=== PATIENT | female | born 1970 | race Caucasian/White ===

== ENCOUNTER → 2023-08-23 09:19 | Outpatient (REF) | payer BC, SELFPAY | LOC: HWWDC 09:19 | PROVIDERS: ATTENDING PHYSICIAN Internal Medicine | DX: Z12.31 Encounter for screening mammogram for malignant neoplasm of breast (principal) | CPT/HCPCS: 77063; 77067 ==

== ENCOUNTER 2024-10-13 08:33 | Emergency (ER) | payer BC, SELFPAY ==
[2024-10-13 08:36] VITALS: BP 167/109
[2024-10-13 09:58] VITALS: BMI 39.5
[2024-10-13 10:04] VITALS: BP 158/87
--- NOTE | 2024-10-13 10:22 | ED.GENMED ---
History of Present Illness
General
Chief Complaint: Rectal Bleeding
Source: patient
Exam Limitations: none
Time Seen by Provider: 10/13/24 09:58
Nursing documentation reviewed up to this point in time: agreed with
History of Present Illness
History of Present Illness:
Patient is a 53-year-old female with past medical history of Graves' disease, renal cell carcinoma 7 years ago status post partial nephrectomy currently in remission, who presents to the emergency department for evaluation of rectal bleeding.
Patient reports that she has been constipated recently, she attributes this to dehydration. She reports that she went out to eat last night and ate spicier food than she does normally. She reports that when she got home she had a large amount of
brown diarrhea. Patient reports that she then had another episode of diarrhea prior to bed. She reports that at the end of the bowel movement, she did have a small amount of bright red blood. Patient reports that she had 2 or 3 similar episodes.
She reports that her last normal was around 530 this morning and was less blood than it had been previously. Patient denies any blood clots. Patient denies any bleeding into her underwear or pants. Patient reports she did have some lower
abdominal cramping which is now resolving. Patient denies any nausea or vomiting. Patient denies any lightheadedness or dizziness. Patient denies recent fevers, chills, chest pain, shortness of breath. Patient denies she is anticoagulated.
Patient denies history of similar. Patient denies she has ever had a colonoscopy.
Past History
Past History
ED Past Medical History: Cancer (renal cancer) and Hyperthyroidism (Graves disease)
ED Past Surgical History: Cholecystectomy and Other (Partial nephrectomy)
Social History
Tobacco: Non-smoker
Alcohol: Occasional
Drug: None
Review of Systems
Review of Systems
Allergies reviewed?: Yes
All Other Systems: ROS reviewed and negative except as documented in HPI and ROS
Constitutional: Reports no symptoms
EENT: Reports no symptoms
Respiratory: Reports no symptoms
Cardiac: Reports no symptoms
ABD/GI: Reports abdominal pain, diarrhea and bloody stools; Denies nausea
: Reports no symptoms
Musculoskeletal: Reports no symptoms
Skin: Reports no symptoms
Neurological: Reports no symptoms
Endocrine: Reports no symptoms
Hematologic/Lymphatic: Reports no symptoms
Psychiatric: Reports no symptoms
Phy Exam
General Physical Exam
General Presentation: well appearing and no apparent distress
General Skin: warm and dry
General Habitus: normal
General Mental: alert
General Hydration: appears well hydrated
ENT Exam
ENT Exam: EOMI, pharynx normal, neck supple and normocephalic
Eye Exam
Eye Exam: PERRL, cornea clear and conjunctiva normal
Cardiovascular Exam
Cardiovascular Exam: regular rate/rhythm, no edema, no murmur and normal peripheral pulses
Pulmonary Exam
Pulmonary Exam: lungs clear, no respiratory distress, no rales, no crackles, no rhonchi, no stridor, no wheezing and no cough
Gastrointestinal Exam
Gastrointestinal Exam: normal bowel sounds, non tender, soft, no organomegaly, no pulsatile mass and non distended
Rectal Exam: normal external exam and other (exam chaperoned by patient's nurse Marisa)
Stool: other (light brown)
Guaiac Status: trace positive
Neurological Exam
Neurological Exam: alert, oriented x3, no motor deficits and speech normal
Musculoskeletal Exam
Musculoskeletal Exam: full ROM and no edema
Skin Exam
Skin Exam: normal color, warm/dry, no rash and no petechia
Psychiatric Exam
Psychiatric Exam: normal mood/affect
Course
Orders/Labs/Results
Orders:
Orders
10/13/24 10:17
Complete Blood Count/With Diff Urgent
Comprehensive Metabolic Panel Urgent
Abnormal Lab Results
10/13/24
10:17
Absolute Neuts (auto) 7.3 H 10^3/uL
(1.4-6.5)
Neutrophils % 77.7 H %
(42.2-75.2)
Lymphocytes % 16.2 L %
(20.5-51.1)
Chloride 111 H mmol/L
(98-107)
BUN 19 H mg/dl
(7-17)
Glucose 132 H mg/dl
(70-99)
10/13/24 10:17
10/13/24 10:17
Vital Signs
Initial and Last Documented VS:
Initial Vital Signs
Temp Pulse Resp BP Pulse Ox
98.3 F 107 18 167/109 98
10/13/24 08:36 10/13/24 08:36 10/13/24 08:36 10/13/24 08:36 10/13/24 08:36
Last Documented Vital Signs
Temp Pulse Resp BP Pulse Ox
98.3 F 107 18 148/70 94
10/13/24 08:36 10/13/24 08:36 10/13/24 08:36 10/13/24 13:23 10/13/24 13:23
*Critical Care Note
Total Time (30-74mins, 75-104mins- exclusive of procedures): Not Applicable
Update Note
Update Note:
Patient is a 53-year-old female without significant past medical history who presents to the emergency department for evaluation of rectal bleeding. Patient reports symptoms started last night. She reports she was initially constipated and then
ate at a restaurant and developed diarrhea. Patient reports a small amount of blood with bowel movements, reports that the amount is slowly lessening. Patient denies abdominal pain, nausea, vomiting, fevers. On arrival, patient is moderately
hypertensive, tachycardic to 107 bpm, afebrile. On exam, patient is anxious as she is concerned that her symptoms today could be related to her cancer history, she has a history of renal cancer 7 years ago currently in remission, but she is in no
acute distress, she has a benign abdomen, her rectal exam demonstrates no external hemorrhoids or anal fissures, she does have very light brown stool that is trace positive for occult blood on her rectal exam. Labs are reassuring with hemoglobin of
15.3. Patient was given crackers and water which she ate and drink while she was in the emergency department. She then proceeded to sit on the toilet and passed a small amount of bright red blood which she showed to me. I engaged in shared
decision-making with the patient. I offered her admission to the hospital for trending of her H&H and possible GI consultation. I also offered her discharge to home with close outpatient PCP and GI follow-up. Patient would prefer to go home and
will contact her primary care provider in the morning and schedule GI follow-up. Patient was educated on return precautions, she expressed understanding of the plan and agreed.
ED Attending Note
-
Portions of this chart may have been created with voice recognition software.� Occasional wrong word or��sound alike� substitutions may have occurred due to the inherent limitations of voice recognition software.
Discharge Plan
Departure
Patient Disposition: Home (Routine Discharge)
Date of Disposition: 10/13/24
Time of Disposition: 13:13
Patient with high blood pressure during this ER visit?: No
Condition: Good
Covid-19: Not Applicable
Discharge Problem:
Rectal bleeding
Instructions: Bloody Stools, Adult ED
Referrals:
Francois Alvarez MD [Active] - Follow up in 2-3 days
Tamie Chacon DO [Family Provider] -
Stand Alone Forms: Return to Work
Activity Restrictions/Additional Instructions:
You were seen in the emergency department for evaluation of rectal bleeding. While you were in the emergency department you had blood work performed which showed no dangerous abnormalities. We feel it is safe for you to be discharged home and
recommend that you follow-up closely with your primary care provider as well as a car cooper for definitive diagnosis and treatment. Please return to the emergency department if you have heavier rectal bleeding, severe abdominal pain, if
you are vomiting up blood, if you develop lightheadedness, dizziness, chest pain, shortness of breath, or for any other worsening or concerning symptoms.
Interventions
Interventions:
*Risk Screen - Suicide Last Done: 10/13/24 08:36
*General Assessment Last Done: 10/13/24 09:58
*Neglect/Abuse Screening Last Done: 10/13/24 08:36
*ED- Fall Risk Assessment Last Done: 10/13/24 09:58
*ED COVID-19 Vaccine History Last Done: 10/13/24 09:58
*Nursing Disposition Last Done: 10/13/24 13:27
OW-Onwlns-Fqkrxjboui Assessment Last Done: 10/13/24 09:58
ED- Cardiac Assessment Last Done: 10/13/24 09:58
ED- Pulmonary Assessment Last Done: 10/13/24 09:58
Discharge Date and Time
Discharge Date/Time: 10/13/24 13:35
Print Language: TURKISH
[2024-10-13 10:29] LABS: % Basophils 0.4 % (0-2); % Eosinophils 0.7 % (0-6); % Immature Granulocytes 0.3 % (0-0.5); % Lymphocytes 16.2 % (20.5-51.1); % Monocytes 4.7 % (1.7-9.3); % Neutrophils 77.7 % (42.2-75.2); Absolute Eosinophils 0.1 10^3/uL (0-0.7); Absolute Lymphocytes 1.5 10^3/uL (1.2-3.4); Absolute Monocytes 0.4 10^3/uL (0.1-0.6); Absolute Neutrophils 7.3 10^3/uL (1.4-6.5); Hematocrit 46.1 % (37.0-47.0); Hemoglobin 15.3 g/dL (12.0-16.0); Mean Corp Hgb Conc. 33.2 g/dL (33.0-37.0); Mean Corpuscular Hgb 28.4 pg (27.0-31.0); Mean Corpuscular Volume 85.5 fL (81.0-99.0); Mean Platelet Volume 9.8 fL (7.4-10.4); Nucleated Red Blood Cells % 0 %; Platelet Count 209 10^3/uL (130-400); Red Blood Cell Count 5.39 10^6/uL (4.20-5.40); Red Cell Dist. Width 12.8 % (11.5-14.5); White Blood Cell Count 9.4 10^3/uL (4.8-10.8)
[2024-10-13 11:00] VITALS: BP 147/70
[2024-10-13 11:08] LABS: ALT (SGPT) 26 U/L (0-35); AST (SGOT) 24 U/L (14-36); Albumin 4.5 g/dl (3.5-5.0); Alkaline Phosphatase 100 U/L (38-126); Blood Urea Nitrogen 19 mg/dl (7-17); Calcium 9.9 mg/dl (8.4-10.2); Carbon Dioxide 23 mmol/L (22-30); Chloride 111 mmol/L (98-107); Estimated Creatinine Clearance 93 ml/min; Glucose 132 mg/dl (70-99); Potassium 3.9 mmol/L (3.5-5.1); Sodium 141 mmol/L (135-145); Total Bilirubin 0.8 mg/dl (0.2-1.3); Total Protein 7.9 g/dl (6.3-8.2); eGFR > 60.00
[2024-10-13 12:00] VITALS: BP 143/73
[2024-10-13 13:23] VITALS: BP 148/70
== END 2024-10-13 13:35 | disposition home or self-care (01) ==
LOC: EMR 08:33
PROVIDERS: Physician Assistant Medical; EMERGENCY PHYSICIAN Emergency Medicine; FAMILY PHYSICIAN Internal Medicine
DX: K62.5 Hemorrhage of anus and rectum (principal); Z90.49 Acquired absence of other specified parts of digestive tract; Z90.5 Acquired absence of kidney; Z85.528 Personal history of other malignant neoplasm of kidney
CPT/HCPCS: 99283; 80053; 85025

== ENCOUNTER 2024-10-29 06:21 | Day surgery (SDC) | payer BC, SELFPAY | END 2024-10-29 09:30 | disposition home or self-care (01) | LOC: GI 06:21 | PROVIDERS: ATTENDING PHYSICIAN Internal Medicine | DX: Z12.11 Encounter for screening for malignant neoplasm of colon (principal); K64.8 Other hemorrhoids; K51.40 Inflammatory polyps of colon without complications | CPT/HCPCS: 45385; 88305 ==